=== PATIENT | male | born 1965 | race African-American/Black ===

== ENCOUNTER 2023-11-03 07:26 | Emergency (ER) | payer MEDICAID ==
[~2023-11-03] VITALS: Ht 177.8 cm; Wt 160.0 kg
[2023-11-03 07:35] VITALS: BP 0/0; PULSE 46; RESP 28
[2023-11-03] MEDS ORDERED: NOREPINEPHRINE 8MG/250ML PMX 250 ML IV ONE (07:38)
== END 2023-11-03 07:29 ==
LOC: ER 07:26
DX: R06.02 Shortness of breath (principal); E11.9 Type 2 diabetes mellitus without complications
CPT/HCPCS: 32551; 82962; 31500; 99285; J3490